=== PATIENT | female | born 1990 | race African-American/Black ===

== ENCOUNTER 2020-10-07 09:41 | Emergency (ER) | payer OTHER ==
[~2020-10-07] VITALS: Ht 165.1 cm; Wt 154.2 kg
--- NOTE | 2020-10-07 09:51 | NUR ---
ARRIVAL PT ARRIVED TO ED WITH C/O BODYACHES, RUNNY NOSE, HEADACHE, CONGESTION AND THROAT ON FIRE FOR 2 DAYS. NO FEVER. PT TOOK NO MEDICATIONS PRIOR TO ARRIVAL. BEDSIDE MONITORS APPLIED. VITAL SIGNS STABLE. BED IN LOW LOCKED POSITION.
[2020-10-07 09:56] VITALS: BP 164/106
--- NOTE | 2020-10-07 10:44 | ER.PDOC ---
General Chief Complaint: General Complaint Stated Complaint: RUNNY NOSE,BODYACHE TRAVEL OUT OF US: No Time seen by MD: 10:05 Source: patient Exam Limitations: no limitations History of Present Illness Initial Comments 2 days of bodyaches, sorethroat, and sinus congestion with runny nose. has developed mild dry cough over the past day. Denies recent travel or sick contacts Severity: moderate Modifying Factors: improves with rest Associated Symptoms: cough Past Medical History Medical History: no pertinent history Surgical History: no surgical history Social History Alcohol Use: none Drug Use: none Review of Systems Constitutional: weakness EENTM: nose congestion, throat pain Respiratory: cough, shortness of breath Cardiovascular: denies no symptoms reported, denies see HPI, denies chest pain, denies edema, denies palpitations, denies syncope, denies other Gastrointestinal: denies no symptoms reported, denies see HPI, denies abdominal pain, denies constipation, denies diarrhea, denies nausea, denies vomiting, denies other Genitourinary: denies no symptoms reported, denies see HPI, denies discharge, denies dysuria, denies frequency, denies hematuria, denies pain, denies other Musculoskeletal: muscle pain Skin: denies no symptoms reported, denies see HPI, denies change in color, denies change in hair/nails, denies dryness, denies lesions, denies lumps, denies rash, denies other Psychiatric/Neurological: denies no symptoms reported, denies see HPI, denies anxiety, denies depressed, denies emotional problems, denies headache, denies numbness, denies paresthesia, denies pre-existing deficit, denies seizure, denies tingling, denies tremors, denies weakness, denies other Hematologic/Lymphatic: denies no symptoms reported, denies see HPI, denies anemia, denies blood clots, denies easy bleeding, denies easy bruising, denies swollen glands, denies other Physical Exam General Appearance: No Apparent Distress EENT: eyes nml inspection, pharyngeal erythema Neck: Non-Tender, Normal Inspection Respiratory: lungs clear, normal breath sounds, no respiratory distress, no accessory muscle use CVS: reg rate & rhythm, no murmur, no gallop Gastrointestinal: Normal Bowel Sounds, Non Tender, Soft Back: Normal Inspection Extremities: Normal Range of Motion Neurologic/Psychiatric: lens grinder II-XII NML as Tested, No Motor/Sensory Deficits, Alert, Oriented x 3 Skin: Normal Color Lymphatic: No Adenopathy Results/Orders Results/Orders Orders - VERITO ARREOLA DO Covid19 Antigen Aruna Maria Dolores (10/07/20 10:00) Influenza A&B (10/07/20 10:00) Vital Signs Date Time Temp Pulse Resp B/P (MAP) Pulse Ox O2 Delivery O2 Flow Rate FiO2 10/07/20 09:56 98.8 91 18 164/106 (125) 98 Room Air 10/07/20 09:56 98.8 91 18 10/07/20 09:56 98.8 91 18 98 Laboratory Tests Test 10/07/20 10:07 Influenza Type A Antigen NEGATIVE (NEG) Influenza B Immunofluorescence NEGATIVE (NEG) SARS-CoV-2 Antigen (Rapid) NEGATIVE (NEGATIVE) Progress Progress Flu and covid negative. Discussed with patint at 10;35 ER DEPART Departure Time of Disposition: 10:42 Disposition: 01 HOME / SELF CARE / HOMELESS Impression: Primary Impression: Viral URI with cough Condition: Improved Patient Instructions: Cough, Adult, [id number] Referrals: PCP,UNKNOWN (PCP) PRIMARY CARE PROVIDER Additional Instructions: Drink plenty of fluids. Take tylenol and Motrin as needed. Take decongestants as needed Duration or Time Spent with Pa: 20 VERITO ARREOLA DO Oct 07, 2020 10:44
[2020-10-07 10:59] VITALS: BP 158/86
== END 2020-10-07 11:01 | disposition home or self-care (01) ==
LOC: ER 09:41
DX: J06.9 Acute upper respiratory infection, unspecified (principal); Z20.822 Contact with and (suspected) exposure to COVID-19
CPT/HCPCS: 87426; 87804; 99283